=== PATIENT | female | born 1940 | race Caucasian/White ===

== ENCOUNTER → 2016-08-02 | Outpatient (CLI) | payer OTHER | LOC: US 07-26 10:30 | DX: D50.0 Iron deficiency anemia secondary to blood loss (chronic) (principal); R16.2 Hepatomegaly with splenomegaly, not elsewhere classified | CPT/HCPCS: 76705 ==

== ENCOUNTER → 2016-09-05 | Outpatient (CLI) | payer OTHER | LOC: KOH-I 12:25 | DX: M24.411 Recurrent dislocation, right shoulder (principal); T84.028A Dislocation of other internal joint prosthesis, initial encounter | CPT/HCPCS: 73200 ==

== ENCOUNTER 2020-06-01 16:22 | Emergency (ER) | payer OTHER ==
[2020-06-01 19:14] LABS: HEMOGLOBIN 9.5 gm/dl (12.3-15.3); RED BLOOD COUNT 3.32 M/UL (4.00-5.10)
[2020-06-01 19:39] LABS: BUN/CREATININE RATIO 26 (0-10)
== END 2020-06-01 23:44 | disposition home or self-care (01) ==
LOC: ER1 16:22
DX: U07.1 COVID-19 (principal); R07.1 Chest pain on breathing
CPT/HCPCS: 36415; 71045; 80053; 82550; 82553; 83874; 84484; 85025; 93005; 99285; Q9967

== ENCOUNTER → 2020-06-18 | Outpatient (CLI) | payer OTHER | LOC: LAB 12:36 | DX: M32.9 Systemic lupus erythematosus, unspecified (principal); R76.8 Other specified abnormal immunological findings in serum; Z92.29 Personal history of other drug therapy | CPT/HCPCS: 36415; 81001; 82570; 84156 ==

== ENCOUNTER → 2020-07-15 | Outpatient (CLI) | payer OTHER | LOC: EXRD 14:13 | DX: M81.0 Age-related osteoporosis without current pathological fracture (principal); M85.89 Other specified disorders of bone density and structure, multiple sites | CPT/HCPCS: 77080 ==

== ENCOUNTER → 2020-10-19 | Outpatient (CLI) | payer OTHER | LOC: HEART 5 09:30 | DX: R42 Dizziness and giddiness (principal); I08.3 Combined rheumatic disorders of mitral, aortic and tricuspid valves; I27.20 Pulmonary hypertension, unspecified | CPT/HCPCS: 93306 ==

== ENCOUNTER → 2020-11-06 | Outpatient (CLI) | payer OTHER | LOC: EXRD 08:53 | DX: R74.8 Abnormal levels of other serum enzymes (principal) | CPT/HCPCS: 76705 ==

== ENCOUNTER 2020-12-05 12:39 | Emergency (ER) | payer OTHER ==
[2020-12-05 13:25] LABS: HEMOGLOBIN 10.5 gm/dl (12.3-15.3); RED BLOOD COUNT 3.75 M/UL (4.00-5.10); WHITE BLOOD COUNT 4.7 K/UL (4.5-11.0)
[2020-12-05 13:55] LABS: BUN/CREATININE RATIO 18 (0-10)
== END 2020-12-06 00:18 | disposition short-term general hospital (02) ==
LOC: ER1 12:39
PROVIDERS: Emergency Medicine
DX: K92.2 Gastrointestinal hemorrhage, unspecified (principal); Z20.822 Contact with and (suspected) exposure to COVID-19; I10 Essential (primary) hypertension; Z79.01 Long term (current) use of anticoagulants
CPT/HCPCS: 71260; 80053; 81001; 82270; 82550; 82553; 83605; 83690; 84484; 85025; 85610; 85730; 99285; Q9967; U0002

== ENCOUNTER → 2021-03-01 | Outpatient (CLI) | payer OTHER | LOC: EXRD 09:26 | DX: R10.13 Epigastric pain (principal); Z90.49 Acquired absence of other specified parts of digestive tract | CPT/HCPCS: 76705 ==

== ENCOUNTER → 2021-03-17 | Day surgery (SDC) | payer OTHER ==
[~2021-03-17] MED LIST: ALL DAY ALLERGY10 M2 PO; CALCIUM 600 +1 EAC2 PO; COZAAR 50MG TAB50 MG PO; FUROSEMIDE20 MG PO; HYDRALAZINE HCL25 MG PO; LEVOTHYROXINE75 MC1 PO; OMEPRAZOLE20 M1 PO; PLAQUENIL 200200 MG PO; POTASSIUM CHLO10 MEQ PO; PREDINSONE PO; ST. JOSEPH ASPI81 M1 PO; TOPROL XL50 MG PO; VITAMIN D3 PO; ZOCOR20 MG PO
== END | disposition home or self-care (01) ==
LOC: OR 06:06
DX: K31.819 Angiodysplasia of stomach and duodenum without bleeding (principal); D50.0 Iron deficiency anemia secondary to blood loss (chronic); D69.6 Thrombocytopenia, unspecified; E66.3 Overweight; I10 Essential (primary) hypertension; E03.9 Hypothyroidism, unspecified; E11.9 Type 2 diabetes mellitus without complications; E78.5 Hyperlipidemia, unspecified; Z68.26 Body mass index [BMI] 26.0-26.9, adult; Z20.822 Contact with and (suspected) exposure to COVID-19
CPT/HCPCS: J2704; J7040; J7120

== ENCOUNTER → 2021-08-03 | Outpatient (CLI) | payer OTHER | LOC: US 13:20 | DX: R60.0 Localized edema (principal) | CPT/HCPCS: 93971 ==

== ENCOUNTER → 2021-09-09 | Outpatient (CLI) | payer OTHER ==
[2021-09-09 15:53] LABS: BORDETELLA PARAPERTUSSIS Not Detected (Not Detectd); BORDETELLA PERTUSSIS Not Detected (Not Detectd); CHLAMYDIA PNEUMONIAE Not Detected (Not Detectd); CORONAVIRUS HKU1 Not Detected (Not Detectd); CORONAVIRUS NL63 Not Detected (Not Detectd); CORONAVIRUS OC43 Not Detected (Not Detectd); CORONOAVIRUS 229E Not Detected (Not Detectd); HUMAN METAPNEUMOVIRUS Not Detected (Not Detectd); HUMAN RHINOVIRUS/ENTEROVIRUS Not Detected (Not Detectd); INFLUENZA A Not Detected (Not Detectd); INFLUENZA B Not Detected (Not Detectd); MYCOPLASMA PNEUMONIAE Not Detected (Not Detectd); PARAINFLUENZA VIRUS 1 Not Detected (Not Detectd); PARAINFLUENZA VIRUS 2 Not Detected (Not Detectd); PARAINFLUENZA VIRUS 3 Not Detected (Not Detectd); PARAINFLUENZA VIRUS 4 Not Detected (Not Detectd); RESPIRATORY SYNCYTIAL VIRUS Not Detected (Not Detectd)
[2021-09-09 17:10] LABS: SARS-CoV-2 NOT DETECTED (Not Detectd)
== END ==
LOC: LAB 14:27
PROVIDERS: Physician Assistant
DX: J06.9 Acute upper respiratory infection, unspecified (principal); Z20.822 Contact with and (suspected) exposure to COVID-19
CPT/HCPCS: 71046; 87633

== ENCOUNTER 2021-09-15 10:20 | Emergency (ER) | payer OTHER ==
[2021-09-15 12:11] LABS: HEMOGLOBIN 10.7 gm/dl (12.3-15.3); WHITE BLOOD COUNT 4.8 K/UL (4.5-11.0)
[2021-09-15 12:34] LABS: BUN/CREATININE RATIO 24 (0-10)
== END 2021-09-15 13:30 | disposition home or self-care (01) ==
LOC: ER1 10:20
PROVIDERS: Nurse Practitioner
DX: I10 Essential (primary) hypertension (principal); Z88.0 Allergy status to penicillin; Z87.39 Personal history of other diseases of the musculoskeletal system and connective tissue
CPT/HCPCS: 71045; 80053; 81001; 82550; 82553; 84484; 85025; 93005; 99284

== ENCOUNTER → 2021-11-18 | Outpatient (CLI) | payer OTHER | LOC: KOH-I 14:43 | DX: M25.561 Pain in right knee (principal); M25.562 Pain in left knee; M17.11 Unilateral primary osteoarthritis, right knee | CPT/HCPCS: 73562 ==

== ENCOUNTER 2021-12-09 21:10 | Emergency (ER) | payer OTHER ==
[2021-12-09 21:31] LABS: HEMOGLOBIN 10.2 gm/dl (12.3-15.3); RED BLOOD COUNT 3.76 M/UL (4.00-5.10); WHITE BLOOD COUNT 4.6 K/UL (4.5-11.0)
[2021-12-09 22:01] LABS: BUN/CREATININE RATIO 30 (0-10)
[2021-12-10] MEDS ORDERED: MELOXICAM15 MG PO (01:44)
== END 2021-12-10 02:00 | disposition home or self-care (01) ==
LOC: ER1 21:10
PROVIDERS: Student in an Organized Health Care Education/Training Program
DX: I35.0 Nonrheumatic aortic (valve) stenosis (principal); R79.1 Abnormal coagulation profile; E78.5 Hyperlipidemia, unspecified; I10 Essential (primary) hypertension; Z90.49 Acquired absence of other specified parts of digestive tract; Z90.710 Acquired absence of both cervix and uterus; Z79.82 Long term (current) use of aspirin; Z51.81 Encounter for therapeutic drug level monitoring
CPT/HCPCS: 71045; 80053; 82550; 82553; 83880; 84484; 85025; 85379; 85610; 85730; 93005; 99285; Q9967

== ENCOUNTER → 2021-12-10 | Outpatient (CLI) | payer OTHER ==
[~2021-12-10] MED LIST changes: +MELOXICAM15 MG PO
== END ==
LOC: KOH-I 12:31
DX: M25.562 Pain in left knee (principal); M25.561 Pain in right knee; M32.10 Systemic lupus erythematosus, organ or system involvement unspecified; Z68.32 Body mass index [BMI] 32.0-32.9, adult; Z79.52 Long term (current) use of systemic steroids; M17.12 Unilateral primary osteoarthritis, left knee
CPT/HCPCS: 73562

== ENCOUNTER → 2022-01-05 | Outpatient (CLI) | payer OTHER ==
[2022-01-05 15:58] LABS: BORDETELLA PARAPERTUSSIS Not Detected (Not Detectd); BORDETELLA PERTUSSIS Not Detected (Not Detectd); CHLAMYDIA PNEUMONIAE Not Detected (Not Detectd); CORONAVIRUS HKU1 Not Detected (Not Detectd); CORONAVIRUS NL63 Not Detected (Not Detectd); CORONAVIRUS OC43 Not Detected (Not Detectd); CORONOAVIRUS 229E Not Detected (Not Detectd); HUMAN METAPNEUMOVIRUS Not Detected (Not Detectd); HUMAN RHINOVIRUS/ENTEROVIRUS Not Detected (Not Detectd); INFLUENZA A Not Detected (Not Detectd); INFLUENZA B Not Detected (Not Detectd); MYCOPLASMA PNEUMONIAE Not Detected (Not Detectd); PARAINFLUENZA VIRUS 1 Not Detected (Not Detectd); PARAINFLUENZA VIRUS 2 Not Detected (Not Detectd); PARAINFLUENZA VIRUS 3 Not Detected (Not Detectd); PARAINFLUENZA VIRUS 4 Not Detected (Not Detectd); RESPIRATORY SYNCYTIAL VIRUS Not Detected (Not Detectd)
[2022-01-05 17:38] LABS: SARS-CoV-2 NOT DETECTED (Not Detectd)
== END ==
LOC: LAB 15:16
PROVIDERS: Physician Assistant
DX: R05.9 Cough, unspecified (principal); B34.9 Viral infection, unspecified; Z20.822 Contact with and (suspected) exposure to COVID-19
CPT/HCPCS: 71046; 87633

== ENCOUNTER → 2022-01-18 | Outpatient (CLI) | payer OTHER | LOC: HEART 5 09:42 | DX: E11.9 Type 2 diabetes mellitus without complications (principal); I10 Essential (primary) hypertension; R55 Syncope and collapse; R01.1 Cardiac murmur, unspecified; R06.02 Shortness of breath; R07.89 Other chest pain; I08.3 Combined rheumatic disorders of mitral, aortic and tricuspid valves; I27.20 Pulmonary hypertension, unspecified | CPT/HCPCS: 93306 ==